=== PATIENT | male | born 1960 | race Caucasian/White ===

== ENCOUNTER 2016-10-19 05:30 | Inpatient (IN) | payer OTHER ==
[2016-10-04 09:08] LABS: HEMATOCRIT 39.6 % (42.0-52.0); HEMOGLOBIN 13.5 gm/dL (14.0-18.0); MCH 29.1 pg (26.0-34.0); MCHC 34.2 g/dL (28.0-37.0); MCV 85.2 fL (80.0-100.0); RBC 4.65 mil/uL (4.50-6.00); WBC 5.5 thou/uL (4.0-11.0)
[2016-10-04 09:12] LABS: URINE BILIRUBIN NEGATIVE (Negative); URINE BLOOD TRACE (Negative); URINE COLOR YELLOW; URINE GLUCOSE-RANDOM* NEGATIVE (Negative); URINE KETONES NEGATIVE (Negative); URINE LEUKOCYTES-REFLEX NEGATIVE (Negative); URINE PROTEIN (DIPSTICK) NEGATIVE (Negative); URINE SPECIFIC GRAVITY >= 1.030 (1.003-1.035); URINE UROBILINOGEN 0.2 E.U./dl (0.2-1.0)
[2016-10-04 09:19] LABS: PROTIME 10.1 Seconds (9.3-11.4)
[2016-10-04 09:30] LABS: ALBUMIN 3.7 g/dL (3.4-5.0); CALCIUM 8.5 mg/dL (8.5-10.1); CREATININE 0.8 mg/dL (0.7-1.3); POTASSIUM 3.8 mmol/L (3.5-5.1)
[2016-10-19] VITALS (8 sets, daily range): BP systolic 114–141; BP diastolic 54–91
[~2016-10-19] VITALS: Ht 185.4 cm; Wt 120.9 kg
--- NOTE | ~2016-10-19 | HC ---
[facility] [place] [address] CONSULTATION Name: GUCCI DUENAS Room #: 541-P ADM IN M.R.#: [id number] Admission: 10/19/16 Attend Phys: Todd Mcdonald MD Discharge: Date of : 62 Report #: [id number] THIS REPORT FOR: //name// CC: Jose A Mcdonald REQUESTING PHYSICIAN: Dr. Mcdonald. REASON FOR CONSULTATION: Medical management. HISTORY OF PRESENT ILLNESS: The patient is a 56-year-old man with history of arthritis, who underwent left knee replacement surgery earlier today. The patient is recovering well, and his postop course is uncomplicated. His pain is well controlled. The patient denies major medical problems. He has history of hypertension and he takes lisinopril for this. His depression is also stable. He denies history of diabetes, coronary artery disease, or other serious medical problems. Since the patient has been here on the floor, he has been hemodynamically stable. He has no shortness of breath, chest pain, blurry vision, headache, or other symptoms. PAST MEDICAL HISTORY: 1. History of arthritis. 2. Chronic back pain. 3. Hypertension. 4. Depression. CURRENT MEDICATIONS: Reviewed and documented in the patient's chart. FAMILY HISTORY: Reviewed and not pertinent to the patient's current condition. SOCIAL HISTORY: The patient quit smoking cigarette in 2004. He reports occasional social alcohol intake. REVIEW OF SYSTEMS: As above in HPI section. All others negative. PHYSICAL EXAMINATION: GENERAL: The patient is healthy-looking, middle-aged man who is in no apparent distress. He is alert and oriented x 3. VITAL SIGNS: His blood pressure is 141/54, heart rate is 66 and regular, respiration is 18 and temperature is 97.0. HEENT: Pupils are equal. Eye movements are normal. Sclerae are anicteric. NECK: Supple. Thyromegaly is not palpated. The patient has no JVD. Carotid bruit is not appreciated. RESPIRATORY: Chest moves symmetrically with breathing. [facility] [address] [place] [address] CONSULTATION Name: GUCCI DUENAS Room #: [address] [place] [address] IN M.R.#: [id number] Admission: 10/19/16 Attend Phys: Todd Mcdonald MD Discharge: Date of : 62 Report #: [id number] LUNGS: Clear to auscultation bilaterally. CARDIOVASCULAR: The patient has regular rhythm and rate. He has no murmurs, gallops or rubs. GASTROINTESTINAL: Abdomen is soft, nondistended and nontender. Bowel sounds are present. The patient has no hepatomegaly or splenomegaly. MUSCULOSKELETAL: There is no edema, cyanosis or clubbing. NEUROLOGIC: The patient is alert and oriented x 3. His examination is nonfocal. LABORATORY DATA: CBC and BMP during the preop evaluation were reviewed, that were essentially normal. The patient has mild anemia with hemoglobin of 13.5, and normal MCV, but baseline is not known. ASSESSMENT AND PLAN: 1. Status post left knee replacement surgery earlier today. Recovering well. Managed by primary team. 2. Hypertension. Acceptable control. Lisinopril will be renewed and changed. 3. Slightly low hemoglobin at 13.5 and hematocrit 39.6, during the preoperative evaluation. The patient has no overt bleeding, and this can be managed as an outpatient. 4. Depression. Stable, no suicidal ideations. Effexor will be continued unchanged. We will continue to follow the patient during the hospitalization. Once again, thank you very much for allowing us to participate in the care of your patients. By: [id number] Sloane Azul MD /nt
--- NOTE | ~2016-10-19 | O ---
[facility] [place] [address] OPERATIVE REPORT Name: GUCCI DUENAS Room #: 541-P [facility] IN M.R.#: [id number] Admission: 10/19/16 Attend Phys: Todd Mcdonald MD Discharge: 10/23/16 Date of : 62 Report #: [id number] THIS REPORT FOR: //name// CC: Jose A Mcdonald DATE OF SERVICE: 10/19/2016 PREOPERATIVE DIAGNOSIS: Left knee degenerative joint disease, severe. POSTOPERATIVE DIAGNOSIS: Left knee degenerative joint disease, severe. PROCEDURE: Left total knee arthroplasty. SURGEON: Todd Mcdonald MD ORGAN TEACHER: Isaac Burroughs, nurse practitioner. INDICATIONS FOR ORGAN TEACHER: During the course of operation, extensive manipulation, retraction and limb positioning was required. This was afforded to me by my business support assistant. ANESTHESIA: General. INDICATIONS: See hospital H and P. IMPLANTS UTILIZED: We used a DePuy PFC knee system. Used a cruciate retaining femoral component press fit size 5, size 4 tibial tray with a 10-mm insert and a 41-mm oval dome patella. DESCRIPTION OF PROCEDURE: After adequate general anesthesia had been obtained, the patient's left lower extremity was prepped and draped in the usual meticulous sterile fashion. Limb was exsanguinated with gravity, tourniquet inflated to 350 torr. An anterior midline incision was made, subQ divided sharply. Hemostasis obtained with electrocautery. Medial parapatellar incision was made. Infrapatellar fat pad excised. Medial release performed. We removed the patient's very large osteophytes along the borders of the femoral condyle and in the intercondylar notch. We then identified the entry side for the dril. The drill was used to drill a hole in the distal femur. This hole was enlarged, irrigated, suctioned, and the intramedullary guide placed to the full length of the femur. The distal femoral cutting guide set at 5 degrees of valgus, which matched the patient's anatomy. It was placed in appropriate rotation and pinned into position and the distal femoral cut was made. We then utilized the measuring device to determine the size of [address] [address] OPERATIVE REPORT Name: GUCCI DUENAS Room #: 541-P DIS IN M.R.#: [id number] Admission: 10/19/16 Attend Phys: Todd Mcdonald MD Discharge: 10/23/16 Date of : 62 Report #: [id number] size for this patient. We marked the distal femur and then impacted the cutting guide into place. The anterior, posterior, and chamfer cuts were made. Rongeur was used to remove additional osteophytes. At this time, the ACL was transected, tibia translated anteriorly, menisci were excised. The drill was used to drill the central portion of the tibia. This hole was enlarged, irrigated, suctioned, and the intramedullary guide placed to the tibia. Proximal tibia cutting guide placed at appropriate height. Proximal tibia cut was made. The 4 tray gave us the best coverage on the tibia. We then put the trial components in position with a 10 spacer flexion and extension gap. Patella tracked normally. At this time, we measured the patella, cutting guide clamped into place, patellar cut was made. A 41 template gave us the best coverage. We put the trial components into position. After the pedicles were drilled, it tracked normally. At this time, the knee was taken through several cycles of flexion and extension, the tibial tray rotation was marked. Distal femur was drilled. Trial components were removed. Tibial keel cuts were made. Knee was irrigated with both pulse lavage and antibiotic irrigation. The cement was vacuum mixed and when it reached the appropriate consistency, the knee was thoroughly dried, the tibial tray was cemented in place. Excess cement was removed. The polyethylene was impacted in place and the femur was impacted in place and the knee was taken out to 30 degrees of flexion, uniform compression placed across components. Patellar button was then cemented into place and again excess cement was removed. We placed irrigation in the wound and allowed to rest in the wound until the cement fully cured. When it had done so, the knee was irrigated and inspected and dried thoroughly. The drains were placed superolaterally both deep and superficial. The retinacular layer was closed with a combination of interrupted gtktds-[id number] #1 Vicryl as well as a running #1 Tevdek. SubQ closed with 2-0 Monocryl. Skin closed with kristen. Sterile compressive dressing was applied. Tourniquet deflated. <ELECTRONICALLY SIGNED> By: Todd Mcdonald MD 10/26/16 0708 1045 [id number] Todd Mcdonald MD /amor
--- NOTE | ~2016-10-19 | EKG ---
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
[~2016-10-19 05:30] MED LIST: ALEVE220 MG PO; IBUPROFEN 200200 M1 PO; PRINIVIL10 MG PO; VENLAFAXIN75 MG/1 T2 PO
[2016-10-20 04:23] VITALS: BP 137/80
[2016-10-20 05:36] LABS: HEMATOCRIT 34.2 % (42.0-52.0); MCH 29.6 pg (26.0-34.0); MCHC 34.9 g/dL (28.0-37.0); MCV 84.7 fL (80.0-100.0); RBC 4.04 mil/uL (4.50-6.00); RDW 12.8 % (10.5-14.5); WBC 13.7 thou/uL (4.0-11.0)
[2016-10-20 07:40] VITALS: BP 114/78
[2016-10-20 14:10] VITALS: BP 114/78
[2016-10-20 15:52] VITALS: BP 125/67
[2016-10-20 16:36] VITALS: BP 114/78
[2016-10-20 19:36] VITALS: BP 102/60
[2016-10-21 03:51] LABS: HEMATOCRIT 31.5 % (42.0-52.0); HEMOGLOBIN 10.8 gm/dL (14.0-18.0); MCH 29.3 pg (26.0-34.0); MCHC 34.1 g/dL (28.0-37.0); MCV 85.9 fL (80.0-100.0); RBC 3.67 mil/uL (4.50-6.00); RDW 13.1 % (10.5-14.5); WBC 11.5 thou/uL (4.0-11.0)
[2016-10-21 05:30] VITALS: BP 139/75
[2016-10-21 07:32] VITALS: BP 124/78
[2016-10-21 15:19] VITALS: BP 121/67
[2016-10-21 19:14] VITALS: BP 130/69
[2016-10-22 04:05] VITALS: BP 129/70
[2016-10-22 06:29] LABS: HEMATOCRIT 30.3 % (42.0-52.0); HEMOGLOBIN 10.6 gm/dL (14.0-18.0); MCH 29.5 pg (26.0-34.0); MCHC 35.1 g/dL (28.0-37.0); MCV 84.1 fL (80.0-100.0); RBC 3.61 mil/uL (4.50-6.00); RDW 12.8 % (10.5-14.5); WBC 10.7 thou/uL (4.0-11.0)
[2016-10-22 07:06] VITALS: BP 121/68
[2016-10-22] MEDS ORDERED: XARELTO10 MG PO (07:18)
[2016-10-22] MEDS ORDERED: PERCOCET 10-321 EACH PO (07:18)
[2016-10-22 11:10] VITALS: BP 114/78
[2016-10-22 13:45] VITALS: BP 114/78
[2016-10-22 14:02] VITALS: BP 114/78
== END 2016-10-23 05:33 | disposition home health service (06) | DRG 470 ==
LOC: TBA 05:30 → 5S 05:30 → PRE 08:08 → 5S 12:52 → PRE 13:37 → 5S 10-23 05:33
PROVIDERS: Orthopaedic Surgery
PROC: 0SRD0J9 Replacement of Left Knee Joint with Synthetic Substitute, Cemented, Open Approach (ICD-10-PCS; principal; 2016-10-19)
DX: M17.12 Unilateral primary osteoarthritis, left knee (principal); I10 Essential (primary) hypertension; D64.9 Anemia, unspecified; F32.9 Major depressive disorder, single episode, unspecified; G89.29 Other chronic pain; M54.9 Dorsalgia, unspecified; Z87.891 Personal history of nicotine dependence; Z88.5 Allergy status to narcotic agent
CPT/HCPCS: 10785; 50010; 50101; 50149; 50415; 50886; 50954; 51130; 51225; 51412; 51771; 52001; 52282; 53000; 53078; 53364; 56525; 56527; 62110; 62900; 64043; 65060; 70005